=== PATIENT | male | born 1995 | race Caucasian/White ===

== ENCOUNTER 2024-06-25 12:57 | Emergency (ER) | payer SELFPAY ==
[2024-06-25 13:01] VITALS: BP 149/97
[2024-06-25 13:55] VITALS: BMI 33.1
[2024-06-25 14:00] VITALS: BP 143/88
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
[2024-06-25 18:22] VITALS: BP 137/97
== END 2024-06-25 18:23 | disposition home or self-care (01) ==
LOC: EMR 12:57
PROVIDERS: EMERGENCY PHYSICIAN Emergency Medicine
DX: S13.4XXA Sprain of ligaments of cervical spine, initial encounter (principal); V43.52XA Car driver injured in collision with other type car in traffic accident, initial encounter; I10 Essential (primary) hypertension
CPT/HCPCS: 99284; 71101; 72125